=== PATIENT | female | born 1930 | race Caucasian/White ===

== ENCOUNTER 2017-09-18 11:58 | Inpatient (IN) | payer OTHER, MEDICAID ==
[~2017-09-18] VITALS: Ht 152.4 cm; Wt 56.0 kg
[2017-09-18 12:42] LABS: BASOPHIL % 0.4 % (0-2); PLATELET COUNT 292 x10^3mcL (130-400); RED CELL DISTRIBUTION WIDTH 13.9 % (11.5-14.5)
[2017-09-18 12:53] LABS: ALBUMIN 3.9 g/dL (3.4-5.0); ALKALINE PHOSPHATASE 71 U/L (46-116); ALT/SGPT 31 U/L (14-59); AMYLASE 76 U/L (25-115); AST/SGOT 27 U/L (15-37); BILIRUBIN TOTAL 0.4 mg/dL (0.20-1.00); CALCIUM 8.7 mg/dL (8.5-10.1); CARBON DIOXIDE 21.2 mmol/L (21-32); CHLORIDE SERUM 85 mmol/L (98-107); CREATININE SERUM 1.1 mg/dL (0.6-1.0); GLUCOSE SERUM 163 mg/dL (74-106); LIPASE 126 IU/L (73-393); TOTAL PROTEIN, SERUM 7.7 g/dL (6.4-8.2)
[2017-09-18 12:57] LABS: UA SPECIFIC GRAVITY 1.025 (1.005-1.035); microscopic required? YES; urine erythrocyte TRACE (NEGATIVE)
[2017-09-18 13:04] LABS: SODIUM SERUM 120 mmol/L (136-145)
[2017-09-18] MEDS ORDERED: METFORMIN HCL1000 MG PO (15:14)
[2017-09-18] MEDS ORDERED: NOR10 PO (15:15)
[2017-09-18] MEDS ORDERED: COLACE100 MG PO (15:15)
[2017-09-18] MEDS ORDERED: LISINOPRIL40 MG PO (15:16)
[2017-09-18] MEDS ORDERED: HYDROCHLOROTHIA25 MG PO (15:16)
[2017-09-18] MEDS ORDERED: LEVOTHYROXIN0.075 M2 PO (15:17)
[2017-09-18] MEDS ORDERED: SIMVASTATIN20 M1 PO (15:18)
[2017-09-18] MEDS ORDERED: NOR10 GT (15:18)
[2017-09-18 17:01] VITALS: BP 154/62
[2017-09-18 17:03] VITALS: BP 153/84
[2017-09-18 18:09] LABS: T3 TOTAL 0.65 ng/mL
[2017-09-18 18:14] LABS: PHOSPHOROUS 4.6 mg/dL (2.5-4.9)
[2017-09-18 18:15] LABS: CHOLESTEROL/HDL RATIO 1.6
[2017-09-18 18:18] LABS: FREE T4 1.29 ng/dL (0.76-1.46); FREE THYROXINE INDEX 4.1 ug/dL (1.4-4.5)
[2017-09-18 18:26] VITALS: BP 154/62
[2017-09-18 20:43] VITALS: BP 159/60
[2017-09-18 20:52] LABS: CALCIUM 8.4 mg/dL (8.5-10.1); CARBON DIOXIDE 22.3 mmol/L (21-32); CHLORIDE SERUM 90 mmol/L (98-107); GLUCOSE SERUM 193 mg/dL (74-106); POTASSIUM SERUM 4.1 mmol/L (3.5-5.1)
[2017-09-18 20:54] LABS: SODIUM SERUM 121 mmol/L (136-145)
[2017-09-19 04:43] VITALS: BP 153/59
[2017-09-19 06:41] LABS: BASOPHIL % 0.3 % (0-2); PLATELET COUNT 255 x10^3mcL (130-400); RED CELL DISTRIBUTION WIDTH 13.6 % (11.5-14.5)
[2017-09-19 07:10] LABS: CALCIUM 7.7 mg/dL (8.5-10.1); CHLORIDE SERUM 92 mmol/L (98-107); GLUCOSE SERUM 145 mg/dL (74-106); POTASSIUM SERUM 3.8 mmol/L (3.5-5.1)
[2017-09-19 07:54] LABS: SODIUM SERUM 123 mmol/L (136-145)
[2017-09-19 09:26] VITALS: BP 166/58
[2017-09-19 12:22] VITALS: BP 159/52
[2017-09-19 16:24] LABS: CALCIUM 7.5 mg/dL (8.5-10.1); CARBON DIOXIDE 20.6 mmol/L (21-32); CHLORIDE SERUM 92 mmol/L (98-107); GLUCOSE SERUM 168 mg/dL (74-106); POTASSIUM SERUM 3.4 mmol/L (3.5-5.1); SODIUM SERUM 125 mmol/L (136-145)
[2017-09-19 16:47] VITALS: BP 148/62
[2017-09-19 21:31] VITALS: BP 145/60
[2017-09-20 05:08] VITALS: BP 156/60
[2017-09-20 07:15] LABS: BASOPHIL % 0.4 % (0-2); PLATELET COUNT 283 x10^3mcL (130-400); RED CELL DISTRIBUTION WIDTH 13.9 % (11.5-14.5)
[2017-09-20 08:15] VITALS: BP 165/63
[2017-09-20 09:19] LABS: CALCIUM 7.9 mg/dL (8.5-10.1); CARBON DIOXIDE 19.3 mmol/L (21-32); CHLORIDE SERUM 95 mmol/L (98-107); GLUCOSE SERUM 169 mg/dL (74-106); MAGNESIUM 1.8 mg/dL (1.8-2.4); POTASSIUM SERUM 3.6 mmol/L (3.5-5.1); SODIUM SERUM 128 mmol/L (136-145)
[2017-09-20 13:42] VITALS: BP 137/83
[2017-09-20 17:40] VITALS: BP 157/58
[2017-09-20 21:46] VITALS: BP 169/59
[2017-09-21 06:02] VITALS: BP 167/67
[2017-09-21 07:31] LABS: BASOPHIL % 0.3 % (0-2); PLATELET COUNT 297 x10^3mcL (130-400); RED CELL DISTRIBUTION WIDTH 14.2 % (11.5-14.5)
[2017-09-21 07:33] LABS: CALCIUM 7.7 mg/dL (8.5-10.1); CARBON DIOXIDE 22.5 mmol/L (21-32); CHLORIDE SERUM 98 mmol/L (98-107); GLUCOSE SERUM 141 mg/dL (74-106); POTASSIUM SERUM 3.8 mmol/L (3.5-5.1); SODIUM SERUM 133 mmol/L (136-145)
[2017-09-21 09:09] VITALS: BP 128/75
[2017-09-21 12:36] VITALS: BP 151/50
[2017-09-21 17:25] VITALS: BP 151/62
[2017-09-21 21:32] VITALS: BP 144/45
[2017-09-22 05:58] VITALS: BP 140/53
[2017-09-22 07:25] LABS: BASOPHIL % 0.4 % (0-2); PLATELET COUNT 290 x10^3mcL (130-400); RED CELL DISTRIBUTION WIDTH 14.1 % (11.5-14.5)
[2017-09-22 07:35] LABS: CALCIUM 7.8 mg/dL (8.5-10.1); CARBON DIOXIDE 23.3 mmol/L (21-32); CHLORIDE SERUM 101 mmol/L (98-107); GLUCOSE SERUM 153 mg/dL (74-106); POTASSIUM SERUM 3.7 mmol/L (3.5-5.1); SODIUM SERUM 135 mmol/L (136-145)
[2017-09-22 09:59] VITALS: BP 118/64
[2017-09-22 15:45] VITALS: BP 181/62
[2017-09-22 17:06] VITALS: BP 183/78
[2017-09-22 23:08] VITALS: BP 164/70
[2017-09-23 05:25] VITALS: BP 149/63
[2017-09-23 07:01] LABS: BASOPHIL % 0.3 % (0-2); PLATELET COUNT 335 x10^3mcL (130-400); RED CELL DISTRIBUTION WIDTH 14.2 % (11.5-14.5)
[2017-09-23 07:20] LABS: CALCIUM 8.5 mg/dL (8.5-10.1); CARBON DIOXIDE 21.7 mmol/L (21-32); CHLORIDE SERUM 102 mmol/L (98-107); CREATININE SERUM 0.9 mg/dL (0.6-1.0); GLUCOSE SERUM 87 mg/dL (74-106); MAGNESIUM 1.9 mg/dL (1.8-2.4); POTASSIUM SERUM 4.1 mmol/L (3.5-5.1); SODIUM SERUM 137 mmol/L (136-145)
[2017-09-23 09:18] VITALS: BP 174/63
[2017-09-23 13:50] VITALS: BP 125/62
[2017-09-23 14:45] VITALS: Ht 152.4 cm; Wt 56.0 kg
[2017-09-23 18:10] VITALS: BP 159/75
[2017-09-23 22:00] VITALS: BP 151/57
[2017-09-24 06:26] LABS: CALCIUM 9.2 mg/dL (8.5-10.1); CARBON DIOXIDE 23.7 mmol/L (21-32); CHLORIDE SERUM 100 mmol/L (98-107); GLUCOSE SERUM 77 mg/dL (74-106); PHOSPHOROUS 3.6 mg/dL (2.5-4.9); POTASSIUM SERUM 3.5 mmol/L (3.5-5.1); SODIUM SERUM 135 mmol/L (136-145)
[2017-09-24 06:36] LABS: BASOPHIL % 0.4 % (0-2); PLATELET COUNT 350 x10^3mcL (130-400); RED CELL DISTRIBUTION WIDTH 14.4 % (11.5-14.5)
[2017-09-24 06:41] VITALS: BP 150/60
[2017-09-24 10:04] VITALS: BP 176/70
[2017-09-24 14:11] VITALS: BP 176/63
[2017-09-24 17:46] VITALS: BP 170/70
[2017-09-24 21:27] VITALS: BP 176/68
[2017-09-25] VITALS: BP 159/50
[2017-09-25 06:02] VITALS: BP 169/66
[2017-09-25 06:22] LABS: BASOPHIL % 0.3 % (0-2); PLATELET COUNT 364 x10^3mcL (130-400); RED CELL DISTRIBUTION WIDTH 13.7 % (11.5-14.5)
[2017-09-25 06:29] LABS: CARBON DIOXIDE 25.2 mmol/L (21-32); CHLORIDE SERUM 99 mmol/L (98-107); GLUCOSE SERUM 150 mg/dL (74-106); MAGNESIUM 1.7 mg/dL (1.8-2.4); PHOSPHOROUS 3.4 mg/dL (2.5-4.9); POTASSIUM SERUM 3.4 mmol/L (3.5-5.1); SODIUM SERUM 134 mmol/L (136-145)
[2017-09-25 09:22] VITALS: BP 169/68
[2017-09-25 15:52] VITALS: BP 132/68
[2017-09-25 17:56] VITALS: BP 126/69
[2017-09-25 21:28] VITALS: BP 167/63
[2017-09-26] VITALS (7 sets, daily range): BP systolic 149–164; BP diastolic 59–62
[2017-09-26 06:47] LABS: CALCIUM 8.4 mg/dL (8.5-10.1); CARBON DIOXIDE 25.4 mmol/L (21-32); CHLORIDE SERUM 99 mmol/L (98-107); GLUCOSE SERUM 124 mg/dL (74-106); MAGNESIUM 3.1 mg/dL (1.8-2.4); PHOSPHOROUS 3.5 mg/dL (2.5-4.9); POTASSIUM SERUM 4.1 mmol/L (3.5-5.1); SODIUM SERUM 137 mmol/L (136-145)
[2017-09-26 06:53] LABS: BASOPHIL % 0.6 % (0-2); PLATELET COUNT 336 x10^3mcL (130-400)
[2017-09-26] MEDS ORDERED: LEVAQUIN750 MG PO (14:13)
[2017-09-26] MEDS ORDERED: VENTOLIN H0.09 MG/A1 INH (14:13)
[2017-09-26] MEDS ORDERED: CLINDAMYCIN HC300 MG PO (14:14)
[2017-09-26] MEDS ORDERED: LOP50 PO (14:15)
[2017-09-26] MEDS ORDERED: BAY PO (14:16)
[2017-09-26] MEDS ORDERED: BG FS (14:18)
[2017-09-26] MEDS ORDERED: OSCD PO (14:19)
[2017-09-26] MEDS ORDERED: FUROSEMIDE40 MG PO (14:20)
[2017-09-26] MEDS ORDERED: PRI20 PO (14:21)
[2017-09-26] MEDS ORDERED: LAC PO (14:21)
[2017-09-26] MEDS ORDERED: HUMULIN R100 U/1 M1 SC (14:26)
[2017-09-26] MEDS ORDERED: ACCU-CHEK1 EACH MC (14:26)
[2017-09-26] MEDS ORDERED: [UNRECOGNIZED DRUG - OTHER] MC (14:27)
[2017-09-26] MEDS ORDERED: LEVEMIR100 U/M1 SC (14:56)
[2017-09-26] MEDS ORDERED: ISOSORBIDE DINI20 MG PO (16:03)
[2017-09-26] MEDS ORDERED: ZES20 PO (16:06)
== END 2017-09-26 18:27 | disposition home health service (06) | DRG 177 ==
LOC: ED 11:58 → DU 14:32
PROVIDERS: Emergency Medicine; Family Medicine; Student in an Organized Health Care Education/Training Program
DX: J69.0 Pneumonitis due to inhalation of food and vomit (principal); N17.0 Acute kidney failure with tubular necrosis; J96.21 Acute and chronic respiratory failure with hypoxia; E87.1 Hypo-osmolality and hyponatremia; J90 Pleural effusion, not elsewhere classified; K56.7 Ileus, unspecified; N39.0 Urinary tract infection, site not specified; D68.69 Other thrombophilia; E11.59 Type 2 diabetes mellitus with other circulatory complications; E11.51 Type 2 diabetes mellitus with diabetic peripheral angiopathy without gangrene; E11.65 Type 2 diabetes mellitus with hyperglycemia; E11.22 Type 2 diabetes mellitus with diabetic chronic kidney disease; R31.9 Hematuria, unspecified; R80.9 Proteinuria, unspecified; I45.10 Unspecified right bundle-branch block; I13.10 Hypertensive heart and chronic kidney disease without heart failure, with stage 1 through stage 4 chronic kidney disease, or unspecified chronic kidney disease; N18.3 Chronic kidney disease, stage 3 (moderate); K75.89 Other specified inflammatory liver diseases; K80.20 Calculus of gallbladder without cholecystitis without obstruction; E03.9 Hypothyroidism, unspecified; Z68.22 Body mass index [BMI] 22.0-22.9, adult
CPT/HCPCS: 36600; 83880; 84439; 87804; 94150; 97110-GP; 97116-GP; 97530-GP; J0696; J1815; J1885; J1940; J1956; J2543; J3475; J3490; J7030; J7040; J7620; J8597; Q0092

== ENCOUNTER 2017-12-21 16:14 | Emergency (ER) | payer OTHER, MEDICAID ==
[~2017-12-21] VITALS: Ht 152.4 cm; Wt 48.1 kg
[~2017-12-21 16:14] MED LIST: ACCU-CHEK1 EACH MC; BAY PO; BG FS; CLINDAMYCIN HC300 MG PO; COLACE100 MG PO; FUROSEMIDE40 MG PO; HUMULIN R100 U/1 M1 SC; HYDROCHLOROTHIA25 MG PO; ISOSORBIDE DINI20 MG PO; LAC PO; LEVAQUIN750 MG PO; LEVEMIR100 U/M1 SC; LEVOTHYROXIN0.075 M2 PO; LISINOPRIL40 MG PO; LOP50 PO; METFORMIN HCL1000 MG PO; NOR10 GT; NOR10 PO; OSCD PO; PRI20 PO; SIMVASTATIN20 M1 PO; VENTOLIN H0.09 MG/A1 INH; ZES20 PO; [UNRECOGNIZED DRUG - OTHER] MC
[2017-12-21 16:34] VITALS: BP 162/77; Ht 152.4 cm; Wt 48.1 kg
== END 2017-12-21 18:03 | disposition home or self-care (01) ==
LOC: ED 16:14
DX: B02.9 Zoster without complications (principal); E11.9 Type 2 diabetes mellitus without complications; I10 Essential (primary) hypertension; E03.9 Hypothyroidism, unspecified